=== PATIENT | female | born 1950 | race Caucasian/White ===

== ENCOUNTER 2019-12-02 09:08 | Day surgery (SDC) ==
--- NOTE | 2019-11-26 09:50 | EKG Report ---
Test Performed on : 11/26/2019 09:43:07 AM Test Reason : PAT Blood Pressure : / mmHG Vent. Rate : 065 BPM Atrial Rate : 065 BPM P-R Int : 142 ms QRS Dur : 072 ms QT Int : 406 ms P-R-T Axes : 046 002 004 degrees QTc Int : 422 ms Normal sinus rhythm. Inferior infarct , age undetermined Abnormal ECG When compared with ECG of 03-OCT-2007 08:09, T wave inversion now evident in Anterior leads Confirmed by Magdy DUNCAN, Hal Hill ([id number]) on 11/28/2019 2:33:00 PM
[2019-11-26 09:53] LABS: URINE SOURCE CLEAN CATCH
[2019-11-26 10:53] LABS: BASO# 0.04 X1000 (0.0-0.2); BASO% 0.6 % (0.0-0.8); EOS# 0.16 X1000 (0.0-0.7); EOS% 2.4 % (0.0-10.0); HEMOGLOBIN 13.1 g/dL (12.0-16.0); LYMPH# 2.17 X1000 (1.2-3.4); MCH 28.8 PG (27-31); MCHC 31.2 g/dL (33-37); MCV 92.3 FL (81-99); MONO# 0.56 X1000 (0.11-0.59); MONO% 8.3 % (1.7-9.3); MPV 9.8 FL (7.4-10.4); NEUT# 3.85 X1000 (1.4-6.5); NEUT% 56.7 % (42.2-75.2); PLT 320 X1000 (130-400); RBC 4.55 XMIL (4.2-5.4); RDW 13.1 % (11.5-14.5); WBC 6.78 X1000 (4.8-10.8)
[2019-11-26 10:55] LABS: BILIRUBIN URINE NEGATIVE (NEGATIVE); BLOOD URINE TRACE (NEGATIVE); COLOR YELLOW; GLUCOSE URINE NEGATIVE (NEGATIVE); KETONE URINE NEGATIVE (NEGATIVE); LEUKOCYTES URINE NEGATIVE (NEGATIVE); NITRITE URINE NEGATIVE (NEGATIVE); PH URINE 5.5; PROTEIN URINE NEGATIVE (NEGATIVE); SP GRAVITY URINE 1.018; TURBIDITY URINE CLEAR (CLEAR); UR EPITHELIAL CELLS <10 /HPF (<10); URINE BACTERIA NEGATIVE /HPF; URINE RBC <10 /HPF (<10); URINE WBC <10 /HPF (<10); UROBILINOGEN URINE NORMAL (NORMAL)
[2019-11-26 11:09] LABS: CALCIUM 9.8 mg/dL (8.8-10.2); CREATININE 1.2 mg/dL (0.5-0.9); POTASSIUM 4.3 mmol/L (3.5-5.1)
[2019-11-26 11:23] LABS: INR 0.97
[2019-11-26 11:24] LABS: PTT 34.1 Seconds (22.3-41.8)
[2019-11-26 12:23] LABS: HEMOGLOBIN A1C 5.6 % (4.8-6.0)
[~2019-12-02 09:08] MED LIST: DIPRIVAN 1% ONE
[2019-12-02] MEDS ORDERED: PEPCID ONE (09:23)
[2019-12-02] MEDS ORDERED: COLACE ONE (09:23)
[2019-12-02] MEDS ORDERED: LYRICA ONE (09:24)
[2019-12-02] MEDS ORDERED: CELEBREX ONE (09:24)
[2019-12-02] MEDS ORDERED: LR 1,000 ML ONE (09:24)
[2019-12-02] MEDS ORDERED: KEFZOL 1 GM/D5W 2 GM/100 ML IVPB ONE (09:24)
[2019-12-02] MEDS ORDERED: DIPRIVAN 1% ONE (09:28)
[2019-12-02] MEDS ORDERED: FENTANYL ONE (09:32)
[2019-12-02] MEDS ORDERED: DURAMORPH ONE (10:19)
[2019-12-02] MEDS ORDERED: SENSORCAINE 0.25%/EPI 1:200,000 ONE (10:20)
[2019-12-02] MEDS ORDERED: SODIUM CHLORIDE 0.9% ONE (10:20)
[2019-12-02] MEDS ORDERED: EXPAREL 1.3% ONE (10:20)
[2019-12-02] MEDS ORDERED: VANCOMYCIN ONE (10:20)
[2019-12-02] MEDS ORDERED: NEOSPORIN G.U. IRRIGANT ONE (10:20)
[2019-12-02] MEDS ORDERED: TORADOL ONE (10:20)
[2019-12-02] MEDS ORDERED: SODIUM CHLORIDE 0.9% 10 ML ONE (12:33)
[2019-12-02] MEDS ORDERED: EPHEDRINE ONE (12:33)
[2019-12-02] MEDS: CYKLOKAPRON 1,000 MG/NS 2,000 MG/200 ML IVPB ONE ×2 (12:35→13:45)
[2019-12-02] MEDS ORDERED: OFIRMEV 1000 MG/ISOTONIC SOLN 1,000 MG/100 ML BOTTLE ONE (13:40)
[2019-12-02] MEDS ORDERED: ZOFRAN ONE (13:40)
[2019-12-02] MEDS ORDERED: DECADRON ONE (13:40)
[2019-12-02] MEDS ORDERED: OXY IR PO PRN ×2 (15:00)
[2019-12-02] MEDS ORDERED: DILAUDID IV PRN ×2 (15:00)
[2019-12-02] MEDS ORDERED: ZOFRAN IV PRN (15:00)
[2019-12-02] MEDS ORDERED: ZOFRAN ODT PO PRN (15:00)
[2019-12-02] MEDS ORDERED: MILK OF MAGNESIA PO PRN (15:00)
[2019-12-02] MEDS ORDERED: NS 1,000 ML ONE (15:05)
[2019-12-02] MEDS ORDERED: DILAUDID ONE (15:05)
[2019-12-02] MEDS: TYLENOL PO SCH ×2 (16:54→20:25)
[2019-12-02] MEDS: ULTRAM PO SCH ×2 (16:55→20:24)
[2019-12-02] MEDS ORDERED: VENTOLIN HFA INH PRN (17:33)
[2019-12-02] MEDS ORDERED: MAXALT PO PRN (17:33)
--- NOTE | 2019-12-02 18:13 | OPERATIVE NOTE ---
PROCEDURE DATE: 12/02/2019 PREOPERATIVE DIAGNOSIS: Left knee degenerative joint disease. POSTOPERATIVE DIAGNOSIS: Left knee degenerative joint disease. PROCEDURE PERFORMED: Left total knee arthroplasty using a [facility] size 5 femoral component, size 4 tibial base plate, an 11 mm articular insert and a 29 mm patellar component. ANESTHESIA: General. SURGEON: Pankaj Hubbard MD. DRYWALL HANGER HELPER: Chito Aguirre. COMPLICATIONS: None. ESTIMATED BLOOD LOSS: Minimal. TOURNIQUET TIME: Approximately 45 minutes. DESCRIPTION OF PROCEDURE: The patient was brought to the operative suite and placed in the supine position. After successful administration of general anesthesia, a well-padded tourniquet was placed on left proximal thigh. Left lower extremities were prepped and draped in usual fashion. Leg was exsanguinated. Tourniquet insufflated to 350 mmHg. A longitudinal incision made beginning at the superior pole of the patella and extended distally to the tibia tuberosity, dissected sharply through the skin. Full-thickness skin flaps were elevated medially and laterally. A medial arthrotomy was made and the medial capsule was elevated off the medial tibial plateau. The ACL, PCL, medial meniscus, lateral meniscus were excised. A drill was entered at the center of the distal femur. Intramedullary guide was placed. The cutting block was pinned in place. Cut made with oscillating saw. Marginal osteophytes removed with rongeur. The attention was then directed to the tibia. A drill was inserted in the tibia. Intramedullary guide was placed. Alignment was checked with a drop richy and taking 4 mm off the low side the tibia in this case was medially. The tibial cutting block was pinned in place. The articular surface of the tibial plateau was removed with oscillating saw. Extension gaps were checked and balanced at 11 mm. Flexion gap was set to 20 mm, was found to be internally rotated. Therefore, the other guide was used to set at 3 degrees of external rotation. Once this was done the femur was sized to a size 5. A size 5 cutting block was pinned in place and anterior cuts, chamfer cuts and posterior condylar cuts were made with oscillating saw. Marginal osteophytes were removed with a rongeur. Box cutting block was pinned in place, box cut made with box osteotome and oscillating saw. Posterior condylar osteophytes were removed with a curved osteotome and rongeur. Attention was then directed to the tibia. The tibia was sized to a size 4. Size 4 guide was used for the fin punch using the drop richy for proper alignment and then the tibial trial, femoral trial, and 11 mm articular insert were placed taken through range of motion found have excellent alignment, balancing, and range of motion. Attention was directed to the patella. Then, 9 mm of the articular surface of patella removed with oscillating saw. Patella sized to size 29. A size 29 guide was used to drill peg holes and lateral facet was chamfered 30 to 45 degrees. Patella trial placed and taken through range of motion and found have excellent patella tracking. All trials removed. The knee was copiously irrigated and dried being certain all bone debris was removed. The tibial component, femoral component, and patellar component were cemented in place excess cement being removed with a Harmans. Once the cement hardened excess cement was again removed with an osteotome. The knee was again copiously irrigated and dried, being certain all bone and cement debris removed. The trial articular insert was removed. The knee was copiously infiltrated with Exparel including posterior capsule, anterior capsule, anterior musculature, and subcutaneous tissue. The tourniquet was deflated. Hemostasis was obtained with electrocautery. The definitive 11 mm articular insert was locked into place. The knee was again copiously irrigated with normal saline containing irrigant and a Vashe irrigation. The medial arthrotomy was then closed with 0 V-Loc. The skin edge approximated with 2-0 Vicryl, skin was closed with Prineo and a sterile dressing was applied. The patient tolerated the procedure well without complication. At the end the procedure, all counts correct x2. The patient was transferred to the recovery room in stable condition. cc: Pankaj Hubbard MD
[2019-12-02] MEDS: KEFZOL 1 GM/D5W 1 GM/50 ML IVPB IV SCH (20:22)
[2019-12-02] MEDS: PERIDEX MT SCH (20:23)
[2019-12-02] MEDS: NS 1,000 ML IV SCH (20:23)
[2019-12-02] MEDS: COLACE PO SCH (20:24)
[2019-12-02] MEDS: CELEBREX PO SCH (20:24)
[2019-12-02] MEDS: LYRICA PO SCH (20:25)
[2019-12-02] MEDS ORDERED: DESYREL PO SCH (21:00)
[2019-12-02] MEDS ORDERED: ZOCOR PO SCH (21:00)
[2019-12-03] MEDS: TYLENOL PO SCH ×2 (03:30→11:11)
[2019-12-03] MEDS: ULTRAM PO SCH ×2 (03:30→11:16)
[2019-12-03] MEDS: KEFZOL 1 GM/D5W 1 GM/50 ML IVPB IV SCH (03:30)
[2019-12-03] MEDS: NS 1,000 ML IV SCH (05:50)
[2019-12-03 07:11] LABS: HEMATOCRIT 33.1 % (37.0-47.0); HEMOGLOBIN 10.3 g/dL (12.0-16.0)
[2019-12-03 07:35] LABS: CALCIUM 8.4 mg/dL (8.8-10.2); CREATININE 1.1 mg/dL (0.5-0.9); POTASSIUM 4.7 mmol/L (3.5-5.1)
[2019-12-03 07:52] VITALS: BP 114/68
[2019-12-03] MEDS ORDERED: SALINE LOCK IV FLUID XX ONE (08:11)
[2019-12-03] MEDS ORDERED: DECADRON IV ONE (09:00)
[2019-12-03] MEDS ORDERED: ASPIRIN PO SCH (09:00)
[2019-12-03] MEDS ORDERED: SINGULAIR PO SCH (09:00)
[2019-12-03] MEDS ORDERED: VITAMIN D PO SCH (09:00)
[2019-12-03] MEDS ORDERED: PEPCID PO SCH (09:00)
[2019-12-03] MEDS ORDERED: PRINIVIL PO SCH (09:00)
[2019-12-03] MEDS: PERIDEX MT SCH (11:11)
[2019-12-03] MEDS: COLACE PO SCH (11:11)
[2019-12-03] MEDS: LYRICA PO SCH (11:11)
[2019-12-03] MEDS: CELEBREX PO SCH (11:15)
--- NOTE | 2019-12-03 21:40 | DISCHARGE SUMMARY ---
ADMISSION DATE: 12/02/2019 DISCHARGE DATE: 12/03/2019 DISCHARGE DIAGNOSIS: Left knee degenerative joint disease, status post left total knee arthroplasty. DISCHARGE MEDICATIONS: See discharge medication list. DISPOSITION: The patient is discharged home with home health physical therapy. Instructed to return for any signs or symptoms of infection or deep venous thrombosis. Instructed to return to see Dr. Hubbard next . HOSPITAL COURSE: On the day of admission, the patient underwent a left total knee arthroplasty. Her postoperative course was unremarkable. At discharge she is afebrile, tolerating a regular diet. Ambulating well with physical therapy. Her wound is clean, dry and intact, without sign of infection. She is discharged home in stable condition. Instructed to follow up as described above. cc: Pankaj Hubbard MD
== END 2019-12-03 14:58 | disposition home or self-care (01) ==
LOC: 4N 09:08 → OPS 09:08 → PAT 09:08 → OPS 12-03 14:58
PROVIDERS: ATTEND Orthopaedic Surgery